=== PATIENT | female | born 2000 | race Caucasian/White ===

== ENCOUNTER → 2018-06-21 14:35 | Emergency (ER) | payer OTHER ==
[~2018-06-21 14:35] MED LIST: NS 0.9% 1000 ML* 1,000 ML IV ONE
--- NOTE | 2018-06-21 15:01 | ED ---
Substance Abuse/Use - HPI Summary HPI Summary: LEVEL 5 CAVEAT: HPI LIMITED DUE TO PT CONDITION, ETOH INTOXICATION A 17 y/o F TREVOR presents to ED with ETOH intoxication. Per EMS, pt fell and hit her head. Pt says she was drinking vodka, denies other drugs. Does not remember falling. Denies PMHx and daily medications. She is a [email or web address] major. [facility]: a few days ago. - History Of Current Complaint Chief Complaint: EDSubstanceAbuse Stated Complaint: ETOH Time Seen by Provider: 06/21/18 14:49 Hx Obtained From: Patient, EMS Ingestion History: Type/Name Of Drug - vodka Overdose Characteristics: Oral - Allergies/Home Medications Allergies/Adverse Reactions: Allergies Allergy/AdvReac Type Severity Reaction Status Date / Time amoxicillin Allergy Unknown Verified 06/21/18 16:55 Reaction Details bee venom protein (honey bee) Allergy Swelling Verified 06/21/18 16:55 Home Medications: Home Medications NK [No Home Medications Reported] 06/21/18 [History Confirmed 06/21/18] PMH/Surg Hx/FS Hx/Imm Hx Previously Healthy: No - LEVEL 5 CAVEAT: PSHx LIMITED DUE TO PT CONDITION, ETOH INTOXICATION Opthamlomology History: Denies: Hx Legally Blind Neurological History: Denies: Other Neuro Impairments/Disorders Infectious Disease History: No Infectious Disease History: Denies: Traveled Outside the [place] in Last 30 Days - Family History Known Family History: Positive: Cardiac Disease - Pacemaker (grandfather) - Social History Occupation: Student Alcohol Use: today Alcohol Amount: vodka Substance Use Type: Reports: None Smoking Status (MU): Never Smoked Tobacco Review of Systems - ROS Summary Review of Systems Summary: LEVEL 5 CAVEAT: ROS LIMITED DUE TO PT CONDITION, ETOH INTOXICATION Constitutional: Other - intoxicated All Other Systems Reviewed And Are Negative: No Physical Exam - Summary Physical Exam Summary: GENERAL: Patient is a well-developed and nourished F who is lying comfortable in the stretcher. Patient is not in any acute respiratory distress. Pt is altered due to intoxication. HEAD AND FACE: Normocephalic EYES: PERRLA, EOMI x 2. EARS: Hearing grossly intact. MOUTH: Oropharynx within normal limits. NECK: Supple, trachea is midline, no adenopathy, no JVD, no carotid bruit. CHEST: Symmetric, no tenderness at palpation LUNGS: Clear to auscultation bilaterally. No wheezing or crackles. CVS: Regular rate and rhythm, S1 and S2 present, no murmurs or gallops appreciated. ABDOMEN: Soft, non-tender. Bowel sounds are normal. No abdominal abnormal pulsations. EXTREMITIES: Full ROM in all major joints, no edema, no cyanosis or clubbing. NEURO: Alert and oriented x 3. No acute neurological deficits. Speech is normal and follows commands. SKIN: Dry and warm Triage Information Reviewed: Yes Vital Signs On Initial Exam: Initial Vitals Pulse BP Pulse Ox 89 108/59 94 06/21/18 14:38 06/21/18 14:38 06/21/18 14:38 Vital Signs Reviewed: Yes - [place] Coma Scale Best Eye Response: 3 - To Speech Best Motor Response: 6 - Obeys Commands Best Verbal Response: 5 - Oriented Coma Scale Total: 14 Diagnostics - Vital Signs Vital Signs Temp Pulse Resp BP Pulse Ox 06/21/18 14:47 97.4 F 97 14 108/59 97 06/21/18 14:38 89 108/59 94 - Laboratory Result Diagrams: 06/21/18 16:19 06/21/18 16:19 Lab Statement: Any lab studies that have been ordered have been reviewed, and results considered in the medical decision making process. - CT C-Spine CT Interpretation: No Acute Changes - IMPRESSION: 1. No calvarial fracture or acute intracranial hemorrhage. 2. No acute fracture or dislocation of the cervical spine. ED provider has reviewed this report. CT Interpretation Completed By: Radiologist BRAIN CT Interpretation: No Acute Changes - IMPRESSION: 1. No calvarial fracture or acute intracranial hemorrhage. 2. No acute fracture or dislocation of the cervical spine. ED provider has reviewed this report. CT Interpretation Completed By: Radiologist Re-Evaluation - Re-Evaluation 1 Re-Evaluation Time: 17:47 Change: Improved Comment: Discussing plans for dispo with pt and friends. Friends will take pt home, they live together. Course/Dx - Course Course Of Treatment: A 17 y/o F BIBA presents to ED with ETOH intoxication. Per EMS, pt fell and hit her head. Her workup is remarkable for ETOH level of 183, otherwise unremarkable. Pt has sober friends at bedside. I discussed results with patient and she reports feeling better. She is hemodynamically stable and safe for discharge. Strict return precautions given and she will otherwise follow up with her PCP. - Diagnoses Provider Diagnoses: Alcohol intoxication Discharge - Sign-Out/Discharge Documenting (check all that apply): Patient Departure - DC - Discharge Plan Condition: Stable Disposition: HOME Patient Education Materials: Alcohol Intoxication (ED) Referrals: [facility] [place] [facility] [Outside] No Primary Care Phys,NOPCP [Primary Care Provider] - Additional Instructions: Please return to the ED if you experience new or worsening symptoms. - Billing Disposition and Condition Condition: STABLE Disposition: Home - Attestation Statements Document Initiated by Scribe: Yes Documenting Scribe: Sruthi Cain Provider For Whom Tonyaibe is Documenting (Include Credential): Dr. Emi Christy MD Scribe Attestation: Sruthi Thapa, scribed for Dr. Emi Christy MD on 06/22/18 at 0752. Scribe Documentation Reviewed: Yes Provider Attestation: The documentation as recorded by the Sruthi ivory accurately reflects the service I personally performed and the decisions made by , Dr. Emi Christy MD
--- NOTE | 2018-06-21 15:46 | RAD ---
indication: Fall. + EtOH. COMPARISON: None A CT scan of the brain and c-spine was performed without intravenous contrast enhancement. Contiguous axial sections were obtained from the lung apices through the vertex. BRAIN: The ventricles, cisterns and sulci are within normal limits. No significant focal abnormality or mass effect is seen. The goel-white differentiation is adequately maintained. There is no intracranial hemorrhage. No significant bony abnormality is present. The mastoid air cells are appropriately aerated. The visualized paranasal sinuses are clear. C-SPINE: On the sagittal view images the vertebral bodies and bilateral facet joints are correctly aligned. The dens is intact and the atlantoaxial interval is not widened. The intervertebral body heights are maintained. There is no hyperdense material in the cervical canal to indicate hemorrhage. The visualized musculature and soft tissues are normal. There is no gross lymphadenopathy visualized. The visualized portion of the lung apices are clear. IMPRESSION: 1. No calvarial fracture or acute intracranial hemorrhage. 2. No acute fracture or dislocation of the cervical spine.
[2018-06-21 16:30] LABS: ABS Basophils 0 10^3/ul (0-0.2); ABS Eosinophils 0 10^3/ul (0-0.6); ABS Lymphocytes 0.9 10^3/ul (1.0-4.8); ABS Monocytes 0.3 10^3/ul (0-0.8); ABS Neutrophils 5.1 10^3/ul (1.5-7.7); ABS Nucleated RBC 0 10^3/ul; Eosinophil % 0.5 % (0-6); Hematocrit 37 % (35-47); Hemoglobin 12.8 g/dl (12.0-16.0); Lymphocyte % 14.1 % (25-47); Mean Corpuscular HGB Conc 35 g/dl (31-36); Mean Corpuscular Hemoglobin 30 pg (27-31); Mean Corpuscular Volume 86 fL (80-97); Mean Platelet Volume 7.9 um3 (7.4-10.4); Nucleated Red Blood Cells % 0.1; Platelet Count 232 10^3/ul (150-450); Red Cell Distribution Width 13 % (10.5-15); White Blood Count 6.4 10^3/ul (3.5-10.8)
[2018-06-21 17:00] LABS: EGFR Non-African American 148.6 (>60)
[2018-06-21 18:14] VITALS: BP 125/71
== END | disposition home or self-care (01) ==
LOC: ED 14:35
DX: F10.129 Alcohol abuse with intoxication, unspecified (principal); Z88.0 Allergy status to penicillin
CPT/HCPCS: 36415; 70450; 72125; 80053; 80307; 80320; 80329; 84702; 85025; 96360; 96361; 99283; G0480

== ENCOUNTER 2019-07-19 13:28 | Emergency (ER) | payer OTHER ==
[2019-07-19] MEDS ORDERED: Ondansetron INJ* 2 MG/ML VIAL IV ONE ×2 (14:02→15:26)
[2019-07-19] MEDS ORDERED: NS 0.9% 1000 ML** 1,000 ML IV ONE (14:02)
[2019-07-19 14:24] LABS: ABS Basophils 0.1 10^3/ul (0-0.2); ABS Lymphocytes 0.7 10^3/ul (1.0-4.8); ABS Monocytes 0.4 10^3/ul (0-0.8); ABS Neutrophils 10.7 10^3/ul (1.5-7.7); Hematocrit 41 % (35-47); Lymphocyte % 5.6 %; Mean Corpuscular HGB Conc 34 g/dL (31-36); Mean Corpuscular Hemoglobin 30 pg (27-31); Mean Corpuscular Volume 87 fL (80-97); Platelet Count 239 10^3/uL (150-450); Red Blood Count 4.71 10^6 /uL (3.70-4.87); Red Cell Distribution Width 13 % (10-15); White Blood Count 11.8 10^3/uL (3.5-10.8)
[2019-07-19 14:55] LABS: ALT 13 U/L (7-52); AST 15 U/L (13-39); Albumin/Globulin Ratio 1.7 (1-3); Alkaline Phosphatase 61 U/L (34-104); Anion Gap 7 mmol/L (2-11); BUN/Creatinine Ratio 16.4 (8-20); Blood Urea Nitrogen 10 mg/dL (6-24); CO2 Carbon Dioxide 27 mmol/L (22-32); Calcium 9.8 mg/dL (8.6-10.3); Chloride 105 mmol/L (101-111); EGFR African American 151.3 (>60); Globulin 2.9 g/dL (2-4); Glucose 110 mg/dL (70-100); Potassium 3.9 mmol/L (3.5-5.0); Sodium 139 mmol/L (135-145); Total Protein 7.9 g/dL (6.4-8.9)
[2019-07-19 15:00] LABS: Alcohol < 10 mg/dL (<10)
[2019-07-19 15:01] LABS: HCG Pregnancy < 0.60 mIU/mL
--- NOTE | 2019-07-19 15:21 | ED ---
Substance Abuse/Use - HPI Summary HPI Summary: The pt is a 18 yr old female presenting [place] [facility] [place]/o vomiting multiple times this morning. She was drinking excessive amounts of alcohol last night and woke up with morning feeling nauseous and vomiting many times. She notes that she had stomach problems over the summer that was similar. She rates her current pain severity due to the abd pain an 8/10. No aggravating or alleviating factors noted. She also denies any fever, diarrhea, constipation, hematuria, or discharge. - History Of Current Complaint Chief Complaint: EDNauseaVomitDiarrh Stated Complaint: VOMITING Time Seen by Provider: 07/19/19 13:55 Hx Obtained From: Patient Onset/Duration of Drug/ETOH Abuse: Hours Ingestion History: Type/Name Of Drug - alcohol Overdose Characteristics: Oral Timing Of Abuse: Intermittent Severity Initially: Severe Severity Currently: Severe Aggravating Factor(s): Nothing Alleviating Factor(s): Nothing Associated Signs And Symptoms: Negative - fever, diarrhea, constipation, hematuria, or discharge, Nausea, Vomiting, Other: - pos - abd pain - Allergies/Home Medications Allergies/Adverse Reactions: Allergies Allergy/AdvReac Type Severity Reaction Status Date / Time amoxicillin Allergy Unknown Verified 06/21/18 16:55 Reaction Details bee venom protein (honey bee) Allergy Swelling Verified 06/21/18 16:55 PMH/Surg Hx/FS Hx/Imm Hx Sensory History: Denies: Hx Legally Blind, Hx Deafness Opthamlomology History: Denies: Hx Legally Blind EENT History: Denies: Hx Deafness Neurological History: Denies: Other Neuro Impairments/Disorders - Surgical History Surgical History: None Surgery Procedure, Year, and Place: none Infectious Disease History: No Infectious Disease History: Denies: Traveled Outside the [place] in Last 30 Days - Family History Known Family History: Positive: Cardiac Disease - Pacemaker (grandfather) - Social History Alcohol Use: Occasionally Alcohol Amount: vodka Substance Use Type: Reports: None Smoking Status (MU): Never Smoked Tobacco Review of Systems Negative: Fever Positive: Abdominal Pain, Vomiting, Nausea. Negative: Diarrhea Positive: other - neg - constipation. Negative: discharge, hematuria All Other Systems Reviewed And Are Negative: Yes Physical Exam - Summary Physical Exam Summary: Constitutional: Well-developed, Well-nourished, Alert. (-) Distressed Skin: Warm, Dry HENT: Normocephalic; Atraumatic Eyes: Conjunctiva normal Neck: Musculoskeletal ROM normal neck. (-) JVD, (-) Stridor, (-) Tracheal deviation Cardio: Rhythm regular, rate normal, Heart sounds normal; Intact distal pulses; Radial pulses are 2+ and symmetric. (-) Murmur Pulmonary/Chest wall: Effort normal. (-) Respiratory distress, (-) Wheezes, (-) Rales Abd: Soft, (-) tenderness, (-) Distension, (-) Guarding, (-) Rebound Musculoskeletal: (-) Edema Lymph: (-) Cervical adenopathy Neuro: Alert, Oriented x3 Psych: Mood and affect Normal Triage Information Reviewed: Yes Vital Signs On Initial Exam: Initial Vitals Temp Pulse Resp BP Pulse Ox 97.5 F 96 18 130/84 98 07/19/19 13:29 07/19/19 13:29 07/19/19 13:29 07/19/19 13:29 07/19/19 13:29 Vital Signs Reviewed: Yes Procedures - Sedation Patient Received Moderate/Deep Sedation with Procedure: No Diagnostics - Vital Signs Vital Signs Temp Pulse Resp BP Pulse Ox 07/19/19 13:29 97.5 F 96 18 130/84 98 - Laboratory Lab Results: Lab Results 07/19/19 07/19/19 Range/Units 14:15 14:15 WBC 11.8 H (3.5-10.8) 10^3/uL RBC 4.71 (3.70-4.87) 10^6 /uL Hgb 14.0 (12.0-16.0) g/dL Hct 41 (35-47) % MCV 87 (80-97) fL MCH 30 (27-31) pg MCHC 34 (31-36) g/dL RDW 13 (10-15) % Plt Count 239 (150-450) 10^3/uL MPV 8.0 (7.4-10.4) fL Neut % (Auto) 90.9 % Lymph % (Auto) 5.6 % [place] % (Auto) 3.1 % Eos % (Auto) 0.0 % Baso % (Auto) 0.4 % Absolute Neuts (auto) 10.7 H (1.5-7.7) 10^3/ul Absolute Lymphs (auto) 0.7 L (1.0-4.8) 10^3/ul Absolute Monos (auto) 0.4 (0-0.8) 10^3/ul Absolute Eos (auto) 0.0 (0-0.6) 10^3/ul Absolute Basos (auto) 0.1 (0-0.2) 10^3/ul Absolute Nucleated RBC 0.0 10^3/ul Nucleated RBC % 0.0 Sodium 139 (135-145) mmol/L Potassium 3.9 (3.5-5.0) mmol/L Chloride 105 (101-111) mmol/L Carbon Dioxide 27 (22-32) mmol/L Anion Gap 7 (2-11) mmol/L BUN 10 (6-24) mg/dL Creatinine 0.61 (0.51-0.95) mg/dL Est GFR ( Amer) 151.3 (>60) Est GFR (Non-Af Amer) 125.0 (>60) BUN/Creatinine Ratio 16.4 (8-20) Glucose 110 H (70-100) mg/dL Calcium 9.8 (8.6-10.3) mg/dL Total Bilirubin 0.50 (0.2-1.0) mg/dL AST 15 (13-39) U/L ALT 13 (7-52) U/L Alkaline Phosphatase 61 (34-104) U/L Total Protein 7.9 (6.4-8.9) g/dL Albumin 5.0 (3.2-5.2) g/dL Globulin 2.9 (2-4) g/dL Albumin/Globulin Ratio 1.7 (1-3) Lipase 12 (11.0-82.0) U/L Beta HCG, Quant < 0.60 mIU/mL Serum Alcohol < 10 (<10) mg/dL Result Diagrams: 07/19/19 14:15 07/19/19 14:15 Lab Statement: Any lab studies that have been ordered have been reviewed, and results considered in the medical decision making process. Re-Evaluation - Re-Evaluation First Eval Re-Evaluation Time: 14:44 Change: Improved Comment: Pt is feeling much better, may be discharged home. Course/Dx - Course Course Of Treatment: Patient is here vomiting following binge drinking last night. Patient was mildly tender abdomen social work was performed. Patient will which showed mild leukocytosis. Patient given IV fluid and Zofran with resolution of her symptoms. Patient had no known tenderness on discharge. Patient was encouraged not to binge drink in the future - Diagnoses Provider Diagnoses: Vomiting, Alcohol abuse Discharge ED - Sign-Out/Discharge Documenting (check all that apply): Patient Departure - discharge - Discharge Plan Condition: Stable Disposition: HOME Prescriptions: Ondansetron TAB* [Zofran 4 MG Tab*] 4 mg PO Q8HR PRN #12 tab PRN Reason: Vomiting Patient Education Materials: Acute Nausea and Vomiting (ED) Forms: *School Release Referrals: [facility] - Ion BARTLETT [Primary Care Provider] - 3 Days Additional Instructions: Please take Zofran as prescribed and stay hydrated. PLEASE RETURN TO EMERGENCY DEPARTMENT FOR ANY NEW OR WORSENING SYMPTOMS. Please follow up with your primary care physician. Please make all follow-ups in 1-3 days unless I advise you otherwise. - Billing Disposition and Condition Condition: STABLE Disposition: Home - Attestation Statements Document Initiated by Scribe: Yes Documenting Scribe: Curt Alba Provider For Whom Aaron is Documenting (Include Credential): Umesh Chamberlain MD Scribe Attestation: Curt Thapa, scribed for Umesh Chamberlain MD on 07/19/19 at 1843. Scribe Documentation Reviewed: Yes Provider Attestation: The documentation as recorded by the Curt ivory accurately reflects the service I personally performed and the decisions made by , Umesh Chamberlain MD Status of Scribe Document: Viewed
[2019-07-19 15:42] VITALS: BP 133/81
== END 2019-07-19 15:40 | disposition home or self-care (01) ==
LOC: ED 13:28
DX: R11.10 Vomiting, unspecified (principal); F10.10 Alcohol abuse, uncomplicated; Y90.0 Blood alcohol level of less than 20 mg/100 ml; Z88.1 Allergy status to other antibiotic agents
CPT/HCPCS: 36415; 80053; 80320; 83690; 84702; 85025; 96361; 96374; 96376; 99282; G0480; J2405